=== PATIENT | male | born 1945 | race Caucasian/White ===

== ENCOUNTER 2017-04-01 10:11 | Inpatient (IN) ==
[2017-03-26 13:23] LABS: Basophils # (Auto) 0 K/mcL (0.0-0.3); Basophils % (Auto) 0.4 % (0.0-2.0); Eosinophils # (Auto) 0.1 K/mcL (0.0-0.7); Eosinophils % (Auto) 1.5 % (0.0-7.0); Granulocytes % (Auto) 76.4 % (38.0-78.0); Lymphocytes # (Auto) 0.8 K/mcL (1.5-4.8); Lymphocytes % (Auto) 13.1 % (15.5-49.0); Mean Cell Volume 91.2 fL (80.0-100.0); Mean Corpuscular HGB Conc 33.7 g/dL (31.0-36.0); Mean Corpuscular Hemoglobin 30.7 pg (26.0-34.0); Monocytes # (Auto) 0.5 K/mcL (0.1-0.9); Monocytes % (Auto) 8.6 % (1.0-12.0); Platelet Count 185 K/mcL (140-440); RBC 4.33 M/mcL (4.50-5.90); Red Cell Distribution Width 13.6 % (11.5-14.5)
[2017-03-26 14:03] LABS: Appearance,Urine CLEAR; Bilirubin,Urine NEG (NEG); Color,Urine YELLOW; Glucose,Urine (UA) NEGATIVE (NEG); Leukocyte Esterase,Urine NEG /uL (NEG); Nitrate,Urine NEG (NEG); Protein,Urine NEG (NEG); Urine Blood NEG mg/dL (<0.03); Urobilinogen,Urine NEG (NEG)
[2017-03-26 14:13] LABS: Blood Urea Nitrogen 20 mg/dl (8-23)
[~2017-04-01 10:11] MED LIST: ACETAMINOPHEN 500 MG TABLET PO SCH; CELECOXIB 200 MG CAPSULE PO SCH; KETOROLAC 30 MG, ROPIVACAINE HCL/PF 49.5 ML, EPINEPHrine 0.5 MG, 0.9 % SODIUM CHLORIDE ... IJ SCH; PREGABALIN 75 MG CAPSULE PO SCH; ceFAZolin 1 GM VIAL IV SCH; oxyCODONE 10 MG TAB.ER.12H PO SCH
[2017-04-01] MEDS ORDERED: ONDANSETRON 4 MG/2 ML VIAL IV ONE (13:20)
[2017-04-01] MEDS ORDERED: PROPOFOL 200 MG/20 ML VIAL IV ONE (13:20)
[2017-04-01] MEDS ORDERED: GLYCOPYRROLATE 0.2 MG/ML VIAL IV ONE (13:20)
[2017-04-01] MEDS ORDERED: DEXAMETHASONE 10 MG/ML VIAL IV ONE (13:20)
[2017-04-01] MEDS ORDERED: KETAMINE 100 MG/ML ML IV ONE (13:20)
[2017-04-01] MEDS ORDERED: ePHEDrine 50 MG/ML AMPUL IV ONE (13:20)
[2017-04-01] MEDS ORDERED: PHENYLEPHRINE 10 MG/ML VIAL IV ONE (13:20)
[2017-04-01] MEDS ORDERED: TRANEXAMIC ACID 1,000 MG/10 ML VIAL IV ONE ×2 (13:20→14:43)
[2017-04-01] MEDS ORDERED: MIDAZOLAM 2 MG/2 ML VIAL IV ONE (13:20)
[2017-04-01] MEDS ORDERED: LIDOCAINE HCL/PF 100 MG/5 ML SYRINGE IV ONE (13:20)
[2017-04-01] MEDS ORDERED: MEPERIDINE 25 MG/ML SYRINGE IV PRN (14:36)
[2017-04-01] MEDS ORDERED: ONDANSETRON 4 MG/2 ML VIAL IV PRN ×2 (14:36→14:43)
[2017-04-01] MEDS ORDERED: ACETAMINOPHEN 1,000 MG/100 ML BOTTLE IV ONE (14:36)
[2017-04-01] MEDS ORDERED: NALOXONE HCL 0.4 MG/ML VIAL IV PRN (14:36)
[2017-04-01] MEDS ORDERED: PROMETHAZINE 25 MG/ML VIAL IV PRN (14:36)
[2017-04-01] MEDS ORDERED: IPRATROPIUM/ALBUTEROL 3 ML AMPUL.NEB NEB PRN (14:36)
[2017-04-01] MEDS ORDERED: FLUMAZENIL 0.1 MG/ML ML IV PRN (14:36)
[2017-04-01] MEDS ORDERED: fentaNYL 100 MCG/2 ML VIAL IV PRN (14:36)
[2017-04-01] MEDS ORDERED: LACTATED RINGERS 250 ML IV PRN (14:36)
--- NOTE | 2017-04-01 14:42 | Brief Operative Note ---
Date of procedure: 04/01/17 Pre-op diagnosis: left hip djd Post-op diagnosis: same Procedure: left lan Grafts/Implants: Yes Anesthesia: GETA Complications: none Complications Description: 04/01/17 14:42 none Surgeon: Ziyad Ashby Electrical Continuity Inspector: Johnathan Hoskins Estimated blood loss (cc): 120 Specimens Removed/Pathology: none sent Condition: stable Disposition: PACU
[2017-04-01] MEDS ORDERED: HYDROmorphone 2 MG/ML SYRINGE IV PRN (14:43)
[2017-04-01] MEDS ORDERED: BISACODYL 10 MG SUPP.RECT PR PRN (14:43)
[2017-04-01] MEDS ORDERED: FLEETS ADULT ENEMA PR PRN (14:43)
[2017-04-01] MEDS ORDERED: BENZOCAINE/MENTHOL 1 LOZENGE PO PRN (14:43)
[2017-04-01] MEDS ORDERED: POLYETHYLENE GLYCOL 3350 17 GM PACKET PO PRN (14:43)
[2017-04-01] MEDS ORDERED: KETOROLAC 15 MG/ML VIAL IV PRN (14:43)
[2017-04-01] MEDS ORDERED: MAGNESIUM HYDROXIDE 30 ML ORAL.SUSP PO PRN (14:43)
[2017-04-01] MEDS ORDERED: GENTAMICIN SULFATE 800 MG/20 ML VIAL IR ONE (14:43)
[2017-04-01] MEDS ORDERED: TEMAZEPAM 15 MG CAPSULE PO PRN (14:43)
[2017-04-01] MEDS ORDERED: ACETAMINOPHEN 325 MG TABLET PO PRN (14:43)
[2017-04-01] MEDS ORDERED: LACTATED RINGERS 1,000 ML IV SCH (14:45)
--- NOTE | 2017-04-01 15:00 | Operative Note ---
DATE OF OPERATION: 04/01/2017 PREOPERATIVE DIAGNOSIS: Left hip degenerative arthritis. POSTOPERATIVE DIAGNOSIS: Left hip degenerative arthritis. PROCEDURE: Left total hip arthroplasty. COMPLICATIONS: None. DESCRIPTION OF PROCEDURE: The patient was brought to the operating room, put to sleep with general LMA anesthesia, ad turned into right lateral position. The left hip was sterilely prepped and draped in the usual sterile fashion. Once this was done, we then confirmed the operative side, by timeout, initials and x-rays. Once done, we then placed a superior posterior approach to the hip through the I[place] and exposed the posterior capsule, dislocated the hip superiorly and made our neck cut at 34 mm in total length from the center of hip rotation. We subluxed the hip anteriorly, removed the labrum and reamed up to the size of 58 and implanted a 58 cup with a 35 mm screw with excellent purchase and placed a dual mobility liner. We then prepared the femur. It was broached up to a size 6. The 6 seemed to fit well, but it was slightly longer than the other leg with intraoperative x-rays. We then broached further into the bone with a size 6 about 4 mm into the bone further and then placed the size 6 stem and trialed a size +4. The +4 seemed to fit very nicely with leg lengths being checked. We irrigated thoroughly, placed a ceramic ball with a +4 neck length with an outer dual mobility ball. This was very stable up to 90 degrees of internal rotation and 90 degrees of flexion. Final implants were placed. We irrigated thoroughly and injected the capsule with a post-inject formula. We repaired the superior posterior capsule with #2 Ethibond, closed the fascial layer with #1 Stratafix and skin was closed with 2-0 Vicryls and sophie. The patient tolerated this well. Sterile bandage was applied. RBH:elsa Job ID: [id number] Doc ID: [id number] Ziyad Ashby MD
[2017-04-01] MEDS: 0.45 % SODIUM CHLORIDE 1,000 ML IV SCH (15:40)
--- NOTE | 2017-04-01 15:45 | XRay Report ---
HISTORY: Reason for Exam:Post-Op Total Hip FINDINGS: There is a well-positioned left total hip prosthesis. No fracture is present. There is a residual small bone chip at the base of the remaining portion of the femoral neck. Disc space narrowing is present at L5-S1. IMPRESSION: Well positioned left hip prosthesis Interpreted and Authenticated by: Thien Jackson 04/01/17
[2017-04-01] MEDS: ceFAZolin 1 GM VIAL IV SCH (20:32)
[2017-04-01] MEDS: DOCUSATE SODIUM 100 MG CAPSULE PO SCH (20:32)
[2017-04-01] MEDS: PROPRANOLOL 10 MG TABLET PO SCH (20:33)
[2017-04-01] MEDS: ASPIRIN 325 MG ENTERIC COATED TABLET PO SCH (20:33)
[2017-04-01] MEDS: FAMOTIDINE 20 MG TABLET PO SCH (20:34)
[2017-04-01] MEDS: 0.9 % SODIUM CHLORIDE 10 ML SYRINGE IV SCH (20:35)
[2017-04-01] MEDS ORDERED: IBUPROFEN 600 MG TABLET PO SCH (21:00)
[2017-04-01] MEDS ORDERED: TERAZOSIN 5 MG CAPSULE PO SCH (21:00)
[2017-04-01] MEDS ORDERED: SENNOSIDES 1 TABLET PO SCH (21:00)
[2017-04-01] MEDS: HYDROCODONE/APAP 7.5/325MG TABLET PO PRN (23:48)
[2017-04-02] MEDS: 0.45 % SODIUM CHLORIDE 1,000 ML IV SCH (02:14)
[2017-04-02] MEDS: HYDROCODONE/APAP 7.5/325MG TABLET PO PRN ×2 (04:35→09:17)
[2017-04-02] MEDS: 0.9 % SODIUM CHLORIDE 10 ML SYRINGE IV SCH (04:37)
[2017-04-02] MEDS: ceFAZolin 1 GM VIAL IV SCH (05:23)
--- NOTE | 2017-04-02 07:09 | Discharge Summary ---
Ortho Discharge - [facility] - Patient Instructions Diet: Regular Diet Activity: activity as tolerated, weight bearing as tolerated Total Hip Protocol: Follow activity instructions as provided by Physical Therapy. Dressing Care: Kishore Ag - leave on for 5 days - Follow Up Plan Follow Up Appointments: Ziyad Ashby MD [Physician] - 04/15/17 11:20 am Disposition: Home, Self-Care Prognosis: Good Rehab Potential: Good I certify that the patient requires SNF services: No Overall status at discharge: patient is progressing back to baseline - Orders For Discharge Additional Discharge Orders: Physical Therapy at Discharge - [facility] Location: Determined By Patient Toilet Riser Discharge Order Location: Determined By Patient Walker Location: Determined By Patient
[2017-04-02] MEDS ORDERED: LEVOTHYROXINE 150 MCG TABLET PO SCH (07:30)
[2017-04-02] MEDS ORDERED: LEVOTHYROXINE 125 MCG TABLET PO SCH (07:30)
[2017-04-02] MEDS ORDERED: FEXOFENADINE 180 MG TABLET PO SCH (09:00)
[2017-04-02] MEDS ORDERED: MULTIVIT,THER IRON,CA,FA & MIN 1 TABLET PO SCH (09:00)
[2017-04-02] MEDS: DOCUSATE SODIUM 100 MG CAPSULE PO SCH (09:16)
[2017-04-02] MEDS: FAMOTIDINE 20 MG TABLET PO SCH (09:17)
[2017-04-02] MEDS: ASPIRIN 325 MG ENTERIC COATED TABLET PO SCH (09:17)
[2017-04-02] MEDS: PROPRANOLOL 10 MG TABLET PO SCH (09:17)
== END 2017-04-02 10:35 | disposition home or self-care (01) | DRG 470 ==
LOC: MEDSUR 10:11
PROVIDERS: ADMIT Orthopaedic Surgery; ATTEND Orthopaedic Surgery

== ENCOUNTER 2019-06-21 07:30 | Inpatient (IN) ==
[2019-06-15 16:10] LABS: Basophils # (Auto) 0.03 K/mcL (0.00-0.30); Basophils % (Auto) 0.6 % (0.0-2.0); Eosinophils # (Auto) 0.23 K/mcL (0.00-0.70); Eosinophils % (Auto) 4.9 % (0.0-7.0); Granulocytes % (Auto) 64.9 % (38.0-78.0); Hematocrit 37.5 % (40.1-51.0); Hemoglobin 12.7 g/dL (13.7-17.5); Lymphocytes # (Auto) 0.88 K/mcL (1.50-4.80); Lymphocytes % (Auto) 18.6 % (15.5-49.0); Mean Cell Volume 90.8 fL (80.0-100.0); Mean Corpuscular HGB Conc 33.9 g/dL (31.0-36.0); Mean Platelet Volume 9.5 fL (7.4-10.4); Monocytes # (Auto) 0.52 K/mcL (0.10-0.90); Platelet Count 147 K/mcL (140-440); RBC 4.13 M/mcL (4.63-6.08); Red Cell Distribution Width 13.2 % (11.5-14.5); WBC 4.7 K/mcL (4.50-11.00)
[2019-06-15 16:12] LABS: Appearance,Urine CLEAR; Bilirubin,Urine NEG (NEG); Color,Urine YELLOW; Culture Indicated,Urine NO; Glucose,Urine (UA) NEGATIVE (NEG); Ketones,Urine 5/TR mg/dL (NEG); Leukocyte Esterase,Urine NEG /uL (NEG); Nitrate,Urine NEG (NEG); Protein,Urine NEG (NEG); Specific Gravity,Urine 1.024 (1.000-1.035); Urine Blood NEG mg/dL (<0.03); Urobilinogen,Urine NEG (NEG)
[2019-06-15 16:15] LABS: Blood Urea Nitrogen 18 mg/dl (8-23); Calcium 9.2 mg/dl (8.6-10.4); Carbon Dioxide 27 mmol/L (22-30); Chloride 105 mmol/L (96-108); Glomerular Filtration Rate 84; Glucose 91 mg/dL (70-105)
[~2019-06-21 07:30] MED LIST changes: +0.9 % SODIUM CHLORIDE 9 ML, KETOROLAC 30 MG, ROPIVACAINE HCL/PF 49.5 ML, EPINEPHrine 0.... IJ SCH; +IPRATROPIUM/ALBUTEROL 3 ML AMPUL.NEB NEB PRN; -KETOROLAC 30 MG, ROPIVACAINE HCL/PF 49.5 ML, EPINEPHrine 0.5 MG, 0.9 % SODIUM CHLORIDE ... IJ SCH; +SCOPOLAMINE 1 PATCH PATCH TOPICAL PRN; -ceFAZolin 1 GM VIAL IV SCH; +ceFAZolin 2 GM in DEXTROSE 5% IN WATER 50 ML IV SCH
[2019-06-21] MEDS ORDERED: LIDOCAINE HCL/PF 100 MG/5 ML SYRINGE IV ONE (12:15)
[2019-06-21] MEDS ORDERED: DEXAMETHASONE 10 MG/ML VIAL IV ONE (12:15)
[2019-06-21] MEDS ORDERED: TRANEXAMIC ACID 1,000 MG/10 ML VIAL IV ONE ×2 (12:15→13:59)
[2019-06-21] MEDS ORDERED: ePHEDrine 50 MG/ML AMPUL IV ONE (12:15)
[2019-06-21] MEDS ORDERED: PROPOFOL 200 MG/20 ML VIAL IV ONE (12:15)
[2019-06-21] MEDS ORDERED: KETAMINE 100 MG/ML ML IV ONE (12:15)
[2019-06-21] MEDS ORDERED: ONDANSETRON 4 MG/2 ML VIAL IV ONE (12:15)
[2019-06-21] MEDS ORDERED: GENTAMICIN SULFATE 800 MG/20 ML VIAL IR ONE (13:02)
[2019-06-21] MEDS ORDERED: MEPERIDINE 25 MG/ML SYRINGE IV PRN (13:29)
[2019-06-21] MEDS ORDERED: ONDANSETRON 4 MG/2 ML VIAL IV PRN ×2 (13:29→13:59)
[2019-06-21] MEDS ORDERED: BENZOCAINE/MENTHOL 1 LOZENGE PO PRN ×2 (13:29→13:59)
[2019-06-21] MEDS ORDERED: fentaNYL 100 MCG/2 ML VIAL IV PRN (13:29)
[2019-06-21] MEDS ORDERED: PROMETHAZINE 25 MG/ML VIAL IV PRN (13:29)
[2019-06-21] MEDS ORDERED: IPRATROPIUM/ALBUTEROL 3 ML AMPUL.NEB NEB PRN (13:29)
[2019-06-21] MEDS ORDERED: LACTATED RINGERS 250 ML IV PRN (13:29)
[2019-06-21] MEDS ORDERED: NALOXONE HCL 0.4 MG/ML VIAL IV PRN (13:29)
[2019-06-21] MEDS ORDERED: diphenhydrAMINE 50 MG/ML VIAL IV PRN (13:29)
[2019-06-21] MEDS ORDERED: LACTATED RINGERS 1,000 ML IV SCH (13:30)
--- NOTE | 2019-06-21 13:50 | Brief Operative Note ---
Date of procedure: 06/21/19 Pre-op diagnosis: Left knee djd Post-op diagnosis: same Procedure: Left tka with kelle Grafts/Implants: Yes Anesthesia: GETA Surgeon: Ziyad Ashby Textile Colorist Dyer: Yordan Crowley Estimated blood loss (cc): 20 Tourniquet Time (Minutes): 47 Condition: stable Disposition: PACU
[2019-06-21] MEDS ORDERED: BISACODYL 10 MG SUPP.RECT PR PRN (13:59)
[2019-06-21] MEDS ORDERED: FLEETS ADULT ENEMA PR PRN (13:59)
[2019-06-21] MEDS ORDERED: HYDROmorphone 2 MG/ML VIAL IV PRN (13:59)
[2019-06-21] MEDS ORDERED: POLYETHYLENE GLYCOL 3350 17 GM PACKET PO PRN (13:59)
[2019-06-21] MEDS ORDERED: ACETAMINOPHEN 325 MG TABLET PO PRN (13:59)
[2019-06-21] MEDS ORDERED: MAGNESIUM HYDROXIDE 30 ML ORAL.SUSP PO PRN (13:59)
[2019-06-21] MEDS ORDERED: TEMAZEPAM 15 MG CAPSULE PO PRN (13:59)
[2019-06-21] MEDS ORDERED: ALBUTEROL SULFATE 1 PUFF INHALER INH PRN (14:01)
--- NOTE | 2019-06-21 14:13 | Discharge Summary ---
Ortho Discharge - [facility] - Patient Instructions Diet: Regular Diet Activity: activity as tolerated, weight bearing as tolerated Total Knee Protocol: For Total Knee: Start ROM DONY with stationary bike or rocking chair. Work on gaining full extension of knee. Posterior dislocation precautions provided. Hip abductor strengthening and gait training instructions provided. Apply Cryocuff as instructed. Dressing Care: May shower in 2 days - Follow Up Plan Follow Up Appointments: Yordan Crowley PA-C [Physician [employer] Developer] - 07/08/19 1:40 pm Disposition: Home, Self-Care Prognosis: Good Rehab Potential: Good I certify that the patient requires SNF services: No Overall status at discharge: patient is progressing back to baseline - Orders For Discharge Prescriptions: Docusate Sodium [Colace] 100 mg PO BID #60 cap Transmission Status: Pending to [facility] Aspirin [Ecotrin] 325 mg PO BID #60 tab.ec Transmission Status: Pending to [facility] oxyCODONE/APAP [Percocet 5-325 mg] 1 - 2 tab PO Q4HP PRN #75 tab PRN Reason: Pain Level 3-6 Prescription Printed
--- NOTE | 2019-06-21 14:30 | Operative Note ---
DATE OF OPERATION: 06/21/2019 PREOPERATIVE DIAGNOSIS: Left knee degenerative arthritis, severe. POSTOPERATIVE DIAGNOSIS: Left knee degenerative arthritis, severe. PROCEDURE: Left total knee arthroplasty. SURGEON: Ziyad Ashby M.D. OFFICE MANAGER: Yordan Crowley PA-C. The PA's assistance was required for the safe and efficient completion of the entire case. This provider's expertise and technical skill were required throughout the case. The PA assisted with preoperative coordination, intraoperative retraction, wound closure, dressing and splint application, as well as postoperative documentation and care coordination. ANESTHESIA: General LMA anesthesia. COMPLICATIONS: None. TOTAL TOURNIQUET TIME: 47 minutes. DESCRIPTION OF PROCEDURE: The patient was brought to the operating room and put to sleep with general LMA anesthesia. Once asleep, the patient had the left leg sterilely prepped and draped in the usual sterile fashion. Pre-op antibiotics were given. Tranexamic acid had been confirmed. We then made a midline incision through a midvastus approach. We placed two pins above and below the knee. We then exposed the joint showing severe arthritis in all compartments. We then removed osteophytes and placed two pins above and below and registered the center of hip rotation. We registered medial and lateral malleoli. We registered thirty points on the femur and of the tibia. We balanced the knee at 90 degrees and at 15 degrees. We realigned the implants to confirm perfect alignment with the patient's anatomy. We brought in the robot and then we made the bony cuts. We removed these. We removed the remnants of the meniscus. We removed any osteophytes. We trialed the components. They fit very nicely. Size 7 tibial baseplate, size 7 femur, a 12 mm poly insert with a 38 mm oval patella. All these components were cemented into place. Excess cement was removed. Once it was dried, we then retook the knee through range of motion and removed any loose debris. Posterior osteophytes had already been removed and we confirmed this. We closed the capsule with #1 Stratafix x2, closed the skin with Stratafix and adhesive closure. The patient tolerated this well without complication. All pins were accounted for. [id number]:[email or web address] Job ID: [id number] Doc ID: [id number] Ziyad Ashby MD
--- NOTE | 2019-06-21 14:51 | XRay Report ---
CLINICAL INFORMATION: Post-Op Total Knee COMPARISON: None. FINDINGS: Total knee prostheses is anatomically aligned. No osseous abnormality. Particular soft tissue swelling and gas appreciated. IMPRESSION: Negative Interpreted and Authenticated by: Sudeep Laureano 06/21/19
[2019-06-21] MEDS: 0.9 % SODIUM CHLORIDE 10 ML SYRINGE IV SCH ×2 (15:05→20:36)
[2019-06-21] MEDS: LACTATED RINGERS 1,000 ML IV SCH (15:05)
[2019-06-21] MEDS: oxyCODONE/APAP 5/325MG TABLET PO PRN ×2 (16:18→22:51)
[2019-06-21] MEDS: KETOROLAC 15 MG/ML VIAL IV SCH ×2 (17:32→23:46)
[2019-06-21] MEDS: ceFAZolin 1 GM VIAL IV SCH (20:32)
[2019-06-21] MEDS: PROPRANOLOL 40 MG TABLET PO SCH (20:34)
[2019-06-21] MEDS: ASPIRIN 325 MG ENTERIC COATED TABLET PO SCH (20:34)
[2019-06-21] MEDS: DOCUSATE SODIUM 100 MG CAPSULE PO SCH (20:34)
[2019-06-21] MEDS ORDERED: SENNOSIDES 1 TABLET PO SCH (21:00)
[2019-06-21] MEDS ORDERED: IBUPROFEN 600 MG TABLET PO SCH (21:00)
[2019-06-21] MEDS ORDERED: TERAZOSIN 5 MG CAPSULE PO SCH (21:00)
[2019-06-22] MEDS: LACTATED RINGERS 1,000 ML IV SCH
[2019-06-22] MEDS: oxyCODONE/APAP 5/325MG TABLET PO PRN ×2 (02:55→09:16)
[2019-06-22] MEDS: 0.9 % SODIUM CHLORIDE 10 ML SYRINGE IV SCH ×2 (02:59→06:08)
[2019-06-22] MEDS: ceFAZolin 1 GM VIAL IV SCH (02:59)
[2019-06-22] MEDS: KETOROLAC 15 MG/ML VIAL IV SCH (06:08)
[2019-06-22] MEDS ORDERED: LEVOTHYROXINE 100 MCG TABLET PO SCH (07:30)
[2019-06-22] MEDS ORDERED: OMEPRAZOLE 20 MG CAPSULE PO SCH (07:30)
[2019-06-22] MEDS ORDERED: LEVOTHYROXINE 75 MCG TABLET PO SCH (07:30)
--- NOTE | 2019-06-22 07:39 | Orthopedic Progress Note ---
Subjective Patient information: Note initiated : 06/22/19 at 7:38 am Service Date, if different from initiated Date: [] Patient: Adam Fan 74 y/o M admitted on 06/21/19 for Left Robotic Total Knee Arthroplasty. Chief Complaint: [Pt is stable this morning on post operative day 1 without any significant concerns or complaints. Patients vital signs have remained stable. Patients dressing is dry and is grossly intact from a neurovascular and motor standpoint. Patients 10 point ROS is otherwise negative. ] Objective Vital signs: Vital Signs Temp Pulse Resp BP Pulse Ox 06/22/19 06:56 97.4 F 86 14 122/66 93 06/22/19 02:45 97.3 F 88 12 126/71 93 06/21/19 23:37 93 06/21/19 23:34 97.6 F 99 H 12 140/86 94 06/21/19 19:16 97.2 F 70 10 L 143/78 95 06/21/19 17:59 97 06/21/19 17:42 59 L 18 152/73 96 06/21/19 16:29 97.2 F 55 L 18 155/80 94 06/21/19 16:27 61 18 159/79 96 06/21/19 15:57 53 L 20 164/84 94 06/21/19 15:42 54 L 18 163/82 95 06/21/19 15:25 57 L 18 160/88 94 06/21/19 15:15 97.5 F 56 L 16 158/83 96 06/21/19 14:57 54 L 16 165/85 95 06/21/19 14:43 97.7 F 58 L 12 149/80 96 06/21/19 14:36 57 L 12 148/81 96 06/21/19 14:20 58 L 13 147/70 96 06/21/19 14:15 59 L 11 L 139/69 100 06/21/19 14:10 60 11 L 137/70 99 06/21/19 14:06 97.7 F 66 10 L 143/65 100 Intake and Output 06/21/19 06/22/19 06/22/19 21:59 05:59 13:59 Intake Total 2940 1212 Output Total 730 550 Balance 2210 662 Intake: IV 912 Lactated Ringers 1,000 ml @ 100 912 mls/hr IV .Q10H SAI Rx#: [id number] Oral 1040 300 IV - Manual Only 1900 Output: Urine Catheter Amount 700 Straight 700 Void Amount 550 Estimated Blood Loss 30 Other: Meal Dinner Applesauce, Diced Peaches, & Ihsan Crackers Percent of Meal Consumed 75% 100% Feeding Ability Independent Independent Urine Appearance Straight Clear Urine Color Light Itzel Straight Straw Urine Odor Strong Straight Normal Weight 246 lb 8 oz Intake & Output: Intake & Output 06/21/19 06/22/19 06/22/19 21:59 05:59 13:59 Intake Total 2940 1212 Output Total 730 550 Balance 2210 662 Weight 246 lb 8 oz Intake: IV 912 Lactated Ringers 1,000 ml @ 100 912 mls/hr IV .Q10H SAI Rx#: [id number] Oral 1040 300 IV - Manual Only 1900 Output: Urine Catheter Amount 700 Straight 700 Void Amount 550 Estimated Blood Loss 30 Other: Meal Dinner Applesauce, Diced Peaches, & Ihsan Crackers Percent of Meal Consumed 75% 100% Feeding Ability Independent Independent Urine Appearance Straight Clear Urine Color Light Itzel Straight Straw Urine Odor Strong Straight Normal Incision: Yes healing Incision clean and dry: Yes Dressing: Yes clean Weight bearing status: full Neurological exam IM: Yes motor sensory intact, Yes neurovascular intact Extremities exam IM: Yes Foot pink and warm, Yes neurovascular intact - Labs CBC & BMP: 06/22/19 06:00 06/15/19 11:42 Labs: 06/22/19 06/15/19 06/15/19 06:00 11:42 11:42 Hgb 12.7 L Cancelled Hct 32.2 L 37.5 L Cancelled Assessment and Plan (1) Hx of total knee arthroplasty The patient has been educated regarding dressing care, Physical Therapy recommendations, home exercises, restrictions, and follow up appointments. The patient has had all necessary DME prescribed. The patient has remained relatively stable during their hospital course. Leave Dermabond patch intact until followup Status: Acute
[2019-06-22] MEDS: PROPRANOLOL 40 MG TABLET PO SCH (08:22)
[2019-06-22] MEDS: DOCUSATE SODIUM 100 MG CAPSULE PO SCH (08:26)
[2019-06-22] MEDS: ASPIRIN 325 MG ENTERIC COATED TABLET PO SCH (08:26)
[2019-06-22] MEDS ORDERED: MULTIVIT,THER IRON,CA,FA & MIN 1 TABLET PO SCH (09:00)
[2019-06-22] MEDS ORDERED: FEXOFENADINE 180 MG TABLET PO SCH (09:00)
== END 2019-06-22 10:40 | disposition home or self-care (01) | DRG 470 ==
LOC: MEDSUR 09:47
PROVIDERS: ADMIT Orthopaedic Surgery; ATTEND Orthopaedic Surgery